=== PATIENT | female | born 1995 | race Hispanic/Latino ===

== ENCOUNTER 2022-08-27 05:00 | Inpatient (IN) | payer BC ==
[2022-08-23 10:57] LABS: BASOPHILS % 0.4 % (0.0-1.0); EOSINOPHILS # (AUTO) 0.2 (0.0-0.4); EOSINOPHILS % 3.4 % (0.0-6.0); HEMATOCRIT 41.2 % (34.2-44.1); HEMOGLOBIN 13.2 g/dL (12.0-16.0); LYMPHOCYTES # (AUTO) 1.7 (1.0-3.2); LYMPHOCYTES % 23.4 % (18.0-39.1); MEAN CORPUSCULAR HEMOGLOBIN 31.7 pg (28-32); MEAN CORPUSCULAR VOLUME 98.8 fL (81-99); MONOCYTES # (AUTO) 0.6 (0.2-0.8); MONOCYTES % 7.7 % (4.4-11.3); NEUTROPHILS # (AUTO) 4.6 (2.1-6.9); NEUTROPHILS % 64.7 % (38.7-80.0); PLATELET COUNT 295 x10e3/uL (140-360); RED BLOOD COUNT 4.17 x10e6/uL (3.6-5.1); RED CELL DISTRIBUTION WIDTH 11.9 % (11.7-14.4)
[~2022-08-27] VITALS: Ht 154.9 cm; Wt 105.7 kg
[2022-08-27] MEDS ORDERED: BUPIVACAINE 0.25% 30ML SDV ONE (07:19)
[2022-08-27] MEDS ORDERED: FIBRIN FROZEN 2 ML SPRAY.GEL TOP ONE (07:30)
[2022-08-27] MEDS: LACTATED RINGER'S 1,000 ML IV SCH ×3 (07:45→23:45)
[2022-08-27] MEDS ORDERED: HYDROCODONE/APAP 7.5MG-325MG 1 EA TAB PO PRN (07:45)
[2022-08-27] MEDS ORDERED: ONDANSETRON HCL INJ 2MG/ML 2ML 2 MG/ML VIAL IV PRN (07:45)
[2022-08-27] MEDS ORDERED: SODIUM CHLORIDE 0.9% 100 ML ONE (08:28)
[2022-08-27] MEDS ORDERED: HYDROMORPHONE 1MG/1ML INJ ONE (09:36)
[2022-08-27] MEDS ORDERED: FENTANYL CITRATE/PF 100MCG/2 ML INJ ONE ×2 (10:01→13:18)
[2022-08-27] MEDS ORDERED: ONDANSETRON HCL INJ 2MG/ML 2ML 2 MG/ML VIAL ONE ×2 (10:01→13:15)
[2022-08-27] MEDS ORDERED: METOCLOPRAMIDE HCL 10 MG/2ML VIAL ONE (10:01)
[2022-08-27 12:14] VITALS: BP 105/64
[2022-08-27 12:17] VITALS: BP 105/64
[2022-08-27 12:23] VITALS: BP 105/64
[2022-08-27] MEDS ORDERED: SCOPOLAMINE 1 MG PATCH TOP SCH (13:00)
[2022-08-27] MEDS ORDERED: PROPOFOL IV EMULSION 10 MG/ML 20 ML VIAL ONE (13:15)
[2022-08-27] MEDS ORDERED: DEXAMETHASONE SOD PHOS INJ 4 MG/ML SDV ONE (13:15)
[2022-08-27] MEDS ORDERED: ROCURONIUM BROMIDE 10 MG/ML 5ML VIAL IV ONE (13:15)
[2022-08-27] MEDS ORDERED: SEVOFLURANE INHAL SOLN 250 ML PEN BTL ONE (13:15)
[2022-08-27] MEDS ORDERED: KETOROLAC TROMETHAMINE 30 MG/ML VIAL ONE (13:15)
[2022-08-27] MEDS ORDERED: LIDOCAINE HCL 2% LOCAL INJ 5 ML SDV VIAL INJ ONE (13:15)
[2022-08-27] MEDS ORDERED: MIDAZOLAM HCL 2 MG/2 ML VIAL ONE (13:18)
[2022-08-27] MEDS ORDERED: FAMOTIDINE 20 MG/2 ML VIAL IV ONE (15:04)
[2022-08-27] MEDS: Morphine 2mg Syringe 2 MG/ML SYR IV PRN ×2 (15:30→19:51)
[2022-08-27 16:09] VITALS: BP 120/73
[2022-08-27] MEDS: FAMOTIDINE 20 MG/2 ML VIAL IV SCH (16:19)
[2022-08-27] MEDS: ENOXAPARIN SOD INJ 40 MG/0.4 ML SYR SC SCH (19:50)
[2022-08-27 20:00] VITALS: BP 119/78
[2022-08-27 20:54] VITALS: BP 119/78
[2022-08-28] VITALS: BP 129/86
[2022-08-28] MEDS: Morphine 2mg Syringe 2 MG/ML SYR IV PRN ×2 (01:48→06:00)
[2022-08-28 04:00] VITALS: BP 120/75
[2022-08-28] MEDS: LACTATED RINGER'S 1,000 ML IV SCH (04:21)
[2022-08-28 05:03] LABS: BASOPHILS % 0.2 % (0.0-1.0); EOSINOPHILS % 0.4 % (0.0-6.0); HEMATOCRIT 38.4 % (34.2-44.1); HEMOGLOBIN 12.6 g/dL (12.0-16.0); LYMPHOCYTES # (AUTO) 1.5 (1.0-3.2); LYMPHOCYTES % 14.8 % (18.0-39.1); MEAN CORPUSCULAR HEMOGLOBIN 32.1 pg (28-32); MEAN CORPUSCULAR HGB CONC 32.8 g/dL (31-35); MONOCYTES # (AUTO) 0.7 (0.2-0.8); MONOCYTES % 6.9 % (4.4-11.3); NEUTROPHILS # (AUTO) 7.8 (2.1-6.9); NEUTROPHILS % 77.5 % (38.7-80.0); PLATELET COUNT 275 x10e3/uL (140-360); RED BLOOD COUNT 3.92 x10e6/uL (3.6-5.1); RED CELL DISTRIBUTION WIDTH 11.7 % (11.7-14.4)
[2022-08-28 05:26] LABS: ALANINE AMINOTRANSFERASE 69 IU/L (0-55); ALBUMIN 3.9 g/dL (3.5-5.0); ALBUMIN/GLOBULIN RATIO 1.2 (0.8-2.0); ALKALINE PHOSPHATASE 78 IU/L (40-150); ANION GAP 12.7 mmol/L (8-16); BLOOD UREA NITROGEN < 5 mg/dL (7-26); CALCIUM 8.5 mg/dL (8.4-10.2); CARBON DIOXIDE 25 mmol/L (22-29); CHLORIDE 102 mmol/L (98-107); CREATININE, SERUM 0.62 mg/dL (0.57-1.11); GLUCOSE 87 mg/dL (74-118); MAGNESIUM 1.9 MG/DL (1.3-2.1); PHOSPHORUS 2.9 MG/DL (2.3-4.7); POTASSIUM 3.7 mmol/L (3.5-5.1); SODIUM 136 mmol/L (136-145)
[2022-08-28 05:30] LABS: BUN/CREATININE RATIO 8 (6-25)
[2022-08-28] MEDS ORDERED: CEPACOL SORE THROAT LOZENGES PO PRN (07:00)
[2022-08-28 08:28] VITALS: BP 112/69
[2022-08-28] MEDS: ENOXAPARIN SOD INJ 40 MG/0.4 ML SYR SC SCH (08:53)
[2022-08-28] MEDS: FAMOTIDINE 20 MG/2 ML VIAL IV SCH (08:54)
[2022-08-28 09:11] VITALS: BP 112/69
== END 2022-08-28 10:00 | disposition home or self-care (01) | DRG 621 ==
LOC: OR 05:00 → PACU V 07:40 → MED/SURG 12:02
PROVIDERS: ADMIT Internal Medicine; ATTEND Internal Medicine
PROC: 0D164ZA Bypass Stomach to Jejunum, Percutaneous Endoscopic Approach (ICD-10-PCS; principal; 2022-08-27 07:36)
DX: E66.01 Morbid (severe) obesity due to excess calories (principal); Z68.41 Body mass index [BMI] 40.0-44.9, adult; E11.9 Type 2 diabetes mellitus without complications; G47.33 Obstructive sleep apnea (adult) (pediatric); K21.9 Gastro-esophageal reflux disease without esophagitis; Z90.49 Acquired absence of other specified parts of digestive tract; Z20.822 Contact with and (suspected) exposure to COVID-19; Z82.49 Family history of ischemic heart disease and other diseases of the circulatory system
CPT/HCPCS: 0223U; 36415; 80053; 81025; 83735; 84100; 85025; 94799; C1713; J1100; J1170; J1650; J1885; J2001; J2250; J2270; J2405; J2765; J3010; J7050; J7121